=== PATIENT | female | born 1990 | race Caucasian/White ===

== ENCOUNTER 2018-05-12 19:23 | Emergency (ER) | payer BC ==
[~2018-05-12] VITALS: Ht 157.5 cm; Wt 81.7 kg
[2018-05-12] MEDS ORDERED: LATUDA80 MG PO (19:36)
[2018-05-12] MEDS ORDERED: BUSPIRONE HCL10 MG PO (19:36)
[2018-05-12] MEDS ORDERED: VISTARIL 25 MG25 M1 PO (19:37)
[2018-05-12] MEDS ORDERED: PROAIR HFA8.5 GM INH (20:44)
[2018-05-12 20:51] VITALS: BP 121/84
--- NOTE | 2018-05-13 13:55 | EKG ---
[place] [address] ELECTROCARDIOGRAM REPORT Name: BARRETT CEVALLOS Room: [facility]#: [id number] Admission: 05/12/18 Attend Phys: Discharge: 05/12/18 Date of : 88 Report #: [id number] THIS REPORT FOR: //name// [facility] ED Test Date: 2018-05-12 Test Time: 19:51:11 Pat Name: BARRETT CEVALLOS Department: Room: Gender: F [employer] Teacher: CHUYITA : 1990 Requested By: Vivienne Syed Order Number: [id number] MD: Umberto Jacobs Measurements Intervals [place] Rate: 88 P: 29 VA: 143 QRS: 19 QRSD: 90 T: 25 QT: 361 QTc: 437 Interpretive Statements Sinus rhythm No previous ECG available for comparison Electronically Signed On 05-13-2018 13:55:32 CDT by Umberto Jacobs [email or web address] <ELECTRONICALLY SIGNED> By: Umberto Jacobs MD, [facility] 05/13/18 1355 50 50 Umberto Jacobs MD, FACC /EPI
== END 2018-05-12 20:51 | disposition home or self-care (01) ==
LOC: M.ERS 19:23
DX: R06.02 Shortness of breath (principal); T42.6X5A Adverse effect of other antiepileptic and sedative-hypnotic drugs, initial encounter; Y92.89 Other specified places as the place of occurrence of the external cause; F31.9 Bipolar disorder, unspecified; Z98.890 Other specified postprocedural states; Z88.8 Allergy status to other drugs, medicaments and biological substances

== ENCOUNTER 2020-10-13 10:44 | Emergency (ER) | payer OTHER ==
[~2020-10-13] VITALS: Ht 157.5 cm; Wt 86.2 kg
[~2020-10-13 10:44] MED LIST: BUSPIRONE HCL10 MG PO; LATUDA80 MG PO; PROAIR HFA8.5 GM INH; VISTARIL 25 MG25 M1 PO
[2020-10-13] MEDS ORDERED: ZOLOFT50 M1 PO (10:54)
[2020-10-13] MEDS ORDERED: ATIVAN0.5 M1 PO (10:54)
[2020-10-13] MEDS ORDERED: SINGULAIR 10 MG10 M1 PO (10:55)
[2020-10-13 11:15] LABS: ABSOLUTE BASOPHILS 0.1 thou/uL (0.0-0.2); ABSOLUTE LYMPHOCYTES 2.4 thou/uL (0.8-5.3); ABSOLUTE MONOCYTES 0.3 thou/uL (0.0-1.2); ABSOLUTE NEUTROPHILS 9.4 thou/uL (1.6-8.1); BASOPHILS 0.7 %; EOSINOPHILS 0.1 %; HEMATOCRIT 45.1 % (37.0-47.0); HEMOGLOBIN 14.8 gm/dL (12.0-15.0); LYMPHOCYTES 19.9 %; MCH 28.6 pg (26.0-34.0); MCHC 32.7 g/dL (28.0-37.0); MCV 87.4 fL (80.0-100.0); MONOCYTES 2.7 %; MPV 7.1 fl. (7.2-11.1); NUCLEATED RBCS 0 /100WBC; PLATELET COUNT* 391 thou/uL (150-400); POLYS 76.6 %; RBC 5.16 mil/uL (4.20-5.00); RDW-CV 13.9 % (10.5-14.5); WBC 12.3 thou/uL (4.0-11.0)
[2020-10-13 11:23] LABS: CALCIUM 8.7 mg/dL (8.5-10.1); CREATININE 0.8 mg/dL (0.6-1.3); POTASSIUM 3.9 mmol/L (3.5-5.1)
[2020-10-13 11:27] LABS: ALBUMIN 4.1 g/dL (3.4-5.0); TOTAL BILIRUBIN 0.2 mg/dL (<0.1-1.0); TOTAL PROTEIN 8.2 g/dL (6.4-8.2)
[2020-10-13] MEDS ORDERED: ZOFRAN ODT4 MG SUBLING (11:49)
[2020-10-13 11:56] VITALS: BP 117/74
== END 2020-10-13 11:57 | disposition home or self-care (01) ==
LOC: M.ERS 10:44
PROVIDERS: Family Medicine
DX: R11.2 Nausea with vomiting, unspecified (principal); R10.84 Generalized abdominal pain; F31.9 Bipolar disorder, unspecified; Z98.51 Tubal ligation status; Z98.890 Other specified postprocedural states; Z79.899 Other long term (current) drug therapy; Z88.8 Allergy status to other drugs, medicaments and biological substances

== ENCOUNTER 2021-01-29 11:48 | Emergency (ER) | payer OTHER ==
[~2021-01-29] VITALS: Ht 157.5 cm; Wt 90.7 kg
[~2021-01-29 11:48] MED LIST changes: +ATIVAN0.5 M1 PO; +SINGULAIR 10 MG10 M1 PO; +ZOFRAN ODT4 MG SUBLING; +ZOLOFT50 M1 PO
[2021-01-29] MEDS ORDERED: CETIRIZINE HCL5 MG PO (12:06)
[2021-01-29] MEDS ORDERED: PREDNISONE 10 M10 MG PO (13:27)
[2021-01-29 13:38] VITALS: BP 119/74
== END 2021-01-29 13:34 | disposition home or self-care (01) ==
LOC: M.ERS 11:48
DX: J45.901 Unspecified asthma with (acute) exacerbation (principal); Z88.8 Allergy status to other drugs, medicaments and biological substances; Z98.890 Other specified postprocedural states; Z98.51 Tubal ligation status